=== PATIENT | male | born 1970 | race African-American/Black ===

== ENCOUNTER 2017-07-19 21:07 | Emergency (ER) | payer MEDICAID, OTHER ==
[~2017-07-19] VITALS: Ht 190.5 cm; Wt 78.0 kg
[~2017-07-19 21:07] MED LIST: SULF-165 PO; TRAM50TA3 PO
[2017-07-20 02:25] LABS: CLARITY URINE CLOUDY (CLEAR); COLOR URINE YELLOW (YELLOW); GLUCOSE URINE NEGATIVE (NEGATIVE); KETONES URINE NEGATIVE (NEGATIVE); LEUKOCYTE ESTERASE URINE 2+ (NEGATIVE); NITRITE URINE NEGATIVE (NEGATIVE); OCCULT BLOOD URINE TRACE (NEGATIVE); PROTEIN URINE TRACE (NEGATIVE); UROBILINOGEN URINE 0.2 E.U./dL (0.2-1.0)
[2017-07-20] MEDS ORDERED: LIDOCAINE HCL 1% 20ML VIAL (Pyxis) INJ INFIL ONE (04:00)
[2017-07-20] MEDS ORDERED: AZITHROMYCIN 500 MG TABLET PO ONE (04:00)
[2017-07-20] MEDS ORDERED: CEFTRIAXONE SODIUM 250 MG/VIAL IM ONE (04:00)
[2017-07-20 04:24] VITALS: BP 120/75
== END 2017-07-20 04:27 | disposition home or self-care (01) ==
LOC: ER 21:59
DX: R36.9 Urethral discharge, unspecified (principal); R30.0 Dysuria
CPT/HCPCS: 81001; 87491; 87591; 96372; 99284; J0696; J3490; Z7610